=== PATIENT | female | born 1965 | race Caucasian/White ===

== ENCOUNTER 2017-05-10 14:31 | Emergency (ER) | payer SELFPAY ==
[2017-05-10] MEDS ORDERED: KETOROLAC TROMETHAMINE 60 MG/2 ML SDV IM ONE (15:06)
--- NOTE | 2017-05-10 15:12 | ER Document Report ---
ED Neck/Back Problem - General Chief Complaint: Back Pain Stated Complaint: LEFT SIDE BACK PAIN Time Seen by Provider: 05/10/17 14:48 Mode of Arrival: Ambulatory Information source: Patient TRAVEL OUTSIDE OF THE [place] IN LAST 30 DAYS: No - HPI Patient complains to provider of: Pain, Lower back Onset: Other - 4 Where: Home Timing: Constant, Better Quality of pain: Dull Severity: Moderate Pain Level: 4 Associated symptoms: denies: Chest pain, Abdominal pain, Chills, Constipation, Fever, Incontinence, Like prior neck/back pain, Motor loss, Numbness/tingling, Radiation to arm, Radiation to chest, Radiation to leg, Sensory loss, Sweaty, Unable to urinate, Lower back pain, Upper back pain Exacerbated by: Movement of trunk Relieved by: Remaining still Similar symptoms previously: Yes Recently seen / treated by doctor: No Notes: Patient arrives with complaints of left low back pain and left upper eyelid redness and swelling. Patient states that she has a history of intermittent low back problems. She recently moved here and has been sleeping on the floor. Since then she has had low back pain on the left side that radiates down to the left buttock. She denies any trauma or fall. She denies abdominal pain. She denies blood thinners. She denies IV drug use. She denies fevers. She has no bowel or bladder dysfunction, she denies any numbness tingling or weakness to the lower extremities. She denies any abdominal pain, dysuria or hematuria. No chest pain or shortness of breath. Patient states that her pain seems to be getting better. She also complains of redness swelling and tenderness to the left upper eyelid for the last day. Seems to be getting somewhat worse. No injury to the eye. No drainage. No fevers. - Related Data Allergies/Adverse Reactions: No Known Allergies Allergy (Verified 05/10/17 14:35) Past Medical History - Social History Smoking Status: Current Every Day Smoker Frequency of alcohol use: None Drug Abuse: None Family History: Reviewed & Not Pertinent Patient has suicidal ideation: No Patient has homicidal ideation: No Renal/ Medical History: Denies: Hx Peritoneal Dialysis Review of Systems - Review of Systems -: Yes All other systems reviewed and negative Physical Exam - Vital signs Vitals: Temp Pulse Resp BP Pulse Ox 97.9 F 81 20 166/98 H 99 05/10/17 14:35 05/10/17 14:35 05/10/17 14:35 05/10/17 14:35 05/10/17 14:35 - Notes Notes: GENERAL: alert, cooperative, nontoxic, no distress. HEAD: normocephalic, atraumatic EYES: conjunctiva pink without discharge. Small stye to the medial aspect of the left upper eyelid with mild redness and swelling. Mild tenderness. No periorbital redness or swelling. No drainage from the eye. EARS: no external swelling, no external redness NOSE: atraumatic, no external swelling MOUTH/THROAT: mucous membranes moist and pink, posterior pharynx without erythema, swelling, exudate. No trismus or drooling. NECK: soft, supple, full range of motion, no meningismus. CHEST: no distress, lungs clear and equal throughout. No wheezing, rales, rhonchi. CARDIAC: regular rate and rhythm, no murmur, normal capillary refill, normal pulses. No peripheral edema noted. ABDOMEN: soft, nontender, no pusatile mass. BACK: Tenderness to palpation to the left lumbar paraspinal muscles and left SI joint. No redness, no swelling. No rash. EXTREMITIES: full range of motion of all extremities. No redness, no swelling. NEURO: alert and oriented -3, no focal deficits, full range of motion of all extremities. 5 out of 5 flexion and extension of the lower extremities bilaterally. Patellar and Achilles deep tendon reflexes are +2 bilaterally. Normal sensation with no saddle anesthesia. PYSCH: appropriate mood, affect. Patient is cooperative. SKIN: pink, warm, dry, no rash. Course - Re-evaluation Re-evalutation: 05/10/17 15:10 Patient is nontoxic appearing with stable vitals. The patient has a history of low back problems. This is worsened after sleeping on the floor for the last few days. The pain seems to be getting better today. She has taken some meloxicam as well as a muscle relaxer that she has had in the past with minimal improvement. There was no trauma. She has no sign or risk of cauda equina, epidural abscess bleed, discitis, AAA. Patient will be given a dose of Toradol here in the emergency department, discharged home on prednisone and a small supply of Ultram. Follow-up if not improving in the next week, sooner for increased pain, fever, difficulty controlling her bowels or bladder, or any further concerns. She also has a small stye to the left upper eyelid. She was instructed to use baby shampoo to clean the eyelid and apply warm compresses. Follow-up if this is not better in the next 5-7 days. Sooner for increased pain , fever, redness, swelling or any further concerns. The patient is noted to have elevated blood pressure during today's emergency department visit. The patient was informed of this finding. The patient was instructed that this may be related to pre-hypertension and requires further evaluation with a primary care provider. The patient has no hypertensive symptoms at this time. - Vital Signs Vital signs: Temp Pulse Resp BP Pulse Ox 97.9 F 81 20 166/98 H 99 05/10/17 14:35 05/10/17 14:35 05/10/17 14:35 05/10/17 14:35 05/10/17 14:35 Discharge - Discharge Clinical Impression: Lumbar radiculopathy, acute Hordeolum externum left eye, unspecified eyelid Qualifiers: Eyelid: upper Qualified Code(s): H00.014 - Hordeolum externum left upper eyelid Condition: Stable Disposition: HOME, SELF-CARE Instructions: Low Back Pain ([facility]) Additional Instructions: Take medications as prescribed. Clean your upper eyelid with baby shampoo and apply warm compresses. Follow-up if not better in 1 week, sooner for increased pain, fever, difficulty controlling her bowels or bladder, abdominal pain, increased redness or swelling to your eye, or any further concerns. Your blood pressure was elevated during today's visit. Have this rechecked with your doctor. The medication you were prescribed today may cause drowsiness. Do not drive or operate heavy machinery while taking this medication. Prescriptions: Prednisone 60 mg PO DAILY #15 tablet Tramadol HCl [Ultram] 50 mg PO TID PRN #10 tablet PRN Reason: Forms: Elevated Blood Pressure Referrals: [facility] [Provider Group] - Follow up as needed
[2017-05-10 15:52] VITALS: BP 152/91
== END 2017-05-10 15:40 | disposition home or self-care (01) ==
LOC: ER 14:31
DX: M54.16 Radiculopathy, lumbar region (principal); H00.014 Hordeolum externum left upper eyelid; H57.8 Other specified disorders of eye and adnexa; F17.200 Nicotine dependence, unspecified, uncomplicated
CPT/HCPCS: 99283; 96372; J1885

== ENCOUNTER 2019-09-19 15:03 | Emergency (ER) | payer SELFPAY ==
--- NOTE | 2019-09-19 15:59 | ER Document Report ---
ED Medical Screen (RME) - General Chief Complaint: Headache Stated Complaint: HEADACHE/CONGESTION Time Seen by Provider: 09/19/19 15:49 Primary Care Provider: ASHLEE OBREGON MD [Primary Care Provider] - Follow up as needed Notes: Patient is a 54-year-old female who presents to the emergency department with multiple complaints. Patient reports she has a headache, more fatigued than normal, ringing in her ears, heart palpitations and chest pressure. Patient reports she has had intermittent dizziness with generalized weakness. Patient denies fever. Patient reports she does have sinus congestion but that this is chronic for her. Patient reports that she feels like she needs an EKG as she is concerned about her heart. TRAVEL OUTSIDE OF THE [place] IN LAST 30 DAYS: No - Related Data Allergies/Adverse Reactions: No Known Allergies Allergy (Verified 05/10/17 14:35) Past Medical History - Social History Frequency of alcohol use: None Drug Abuse: None Renal/ Medical History: Denies: Hx Peritoneal Dialysis Physical Exam - Vital signs Vitals: Temp Pulse Resp BP Pulse Ox 98.0 F 110 H 18 150/114 H 95 09/19/19 15:08 09/19/19 15:08 09/19/19 15:08 09/19/19 15:08 09/19/19 15:08 Course - Re-evaluation Re-evalutation: 09/19/19 15:58 I have greeted and performed a rapid initial assessment of this patient. A comprehensive ED assessment and evaluation of the patient, analysis of test results and completion of the medical decision making process will be conducted by additional ED providers. - Vital Signs Vital signs: Temp Pulse Resp BP Pulse Ox 98.0 F 110 H 18 150/114 H 95 09/19/19 15:08 09/19/19 15:08 09/19/19 15:08 09/19/19 15:08 09/19/19 15:08 Doctor's Discharge - Discharge Referrals: ASHLEE OBREGON MD [Primary Care Provider] - Follow up as needed
[2019-09-19 16:37] LABS: ABSOLUTE BASOPHILS # (AUTO) 0.1 10^3/uL (0.0-0.2); ABSOLUTE EOSINOPHILS # (AUTO) 0.1 10^3/uL (0.0-0.6); ABSOLUTE LYMPHOCYTES (AUTO) 2.2 10^3/uL (0.5-4.7); ABSOLUTE MONOCYTES (AUTO) 0.6 10^3/uL (0.1-1.4); ABSOLUTE NEUT (AUTO) 5.6 10^3/uL (1.7-8.2); EOSINOPHILS % (AUTO) 0.7 % (0-6); HEMATOCRIT 46.9 % (36.0-47.0); HEMOGLOBIN 16.2 g/dL (12.0-15.5); LYMPHOCYTES % (AUTO) 25.7 % (13-45); MEAN CORPUSCULAR HEMOGLOBIN 32.2 pg (27.0-33.4); MEAN CORPUSCULAR HGB CONC 34.5 g/dL (32.0-36.0); MEAN CORPUSCULAR VOLUME 93 fl (80-97); MONOCYTES % (AUTO) 6.7 % (3-13); PLATELET COUNT 259 10^3/uL (150-450); RED BLOOD COUNT 5.03 10^6/uL (3.72-5.28); RED CELL DISTRIBUTION WIDTH 13.7 % (11.5-14.0); SEGMENTED NEUTROPHILS % (AUTO) 65.9 % (42-78); TOTAL CELLS COUNTED % (AUTO) 100 %; WHITE BLOOD COUNT 8.4 10^3/uL (4.0-10.5)
[2019-09-19 16:53] LABS: ALBUMIN 4.3 g/dL (3.5-5.0); ALCOHOL 143 mg/dL (NONE DETECTED); ALKALINE PHOSPHATASE 74 U/L (38-126); ANION GAP 12 (5-19); ASPARTATE AMINO TRANSFERASE 35 U/L (14-36); BILIRUBIN,DIRECT 0.3 mg/dL (0.0-0.4); BILIRUBIN,TOTAL 0.3 mg/dL (0.2-1.3); BLOOD UREA NITROGEN 10 mg/dL (7-20); CALCIUM 10.1 mg/dL (8.4-10.2); CARBON DIOXIDE 23 mmol/L (22-30); CHLORIDE 105 mmol/L (98-107); GLUCOSE 112 mg/dL (75-110); POTASSIUM 3.8 mmol/L (3.6-5.0); TOTAL PROTEIN 7.3 g/dL (6.3-8.2)
--- NOTE | 2019-09-19 17:07 | RADIOLOGY REPORT (SQ) ---
EXAM DESCRIPTION: CHEST 2 VIEWS COMPLETED DATE/TIME: 09/19/2019 4:57 pm REASON FOR STUDY: chest pressure COMPARISON: None. EXAM PARAMETERS: NUMBER OF VIEWS: two views TECHNIQUE: Digital Frontal and Lateral radiographic views of the chest acquired. RADIATION DOSE: NA LIMITATIONS: none FINDINGS: LUNGS AND PLEURA: Mild pleural based density mid-lower right lateral chest wall. No acut e pulmonary consolidation. No pneumothorax or pleural effusion. MEDIASTINUM AND HILAR STRUCTURES: No masses or contour abnormalities. HEART AND VASCULAR STRUCTURES: Heart normal size. No evidence for failure. BONES: Dextroconvex scoliosis thoracic spine. HARDWARE: None in the chest. OTHER: No other significant finding. IMPRESSION: 1. No acute pulmonary consolidation. 2. Mild pleural based density mid-lower right lateral chest wall. Further evaluation with CT chest with IV contrast suggested. TECHNICAL DOCUMENTATION: JOB ID: [id number] [employer]- All Rights Reserved Reading location - IP/workstation name: [email or web address]
--- NOTE | 2019-09-19 17:21 | ER Document Report ---
ED General - General Chief Complaint: Headache Stated Complaint: HEADACHE/CONGESTION Time Seen by Provider: 09/19/19 15:49 Primary Care Provider: EDITH VALLEJO MD [NO LOCAL MD] - Follow up as needed ROYER ASENCIO MD [ACTIVE STAFF] - Follow up as needed ASHLEE OBREGON MD [Primary Care Provider] - Follow up as needed Notes: CHIEF COMPLAINT: Multiple complaints HPI: 54-year-old female presenting to the emergency department with multiple complaints. Patient states that she normally has ringing in her ears but is been worse over the last 6 days. She also complains of a posterior headache does have history of similar headaches but states it is also been persistent for 6 days and not going away. Denies visual change or loss. Denies nausea or vomiting. Denies balance or gait difficulty. Denies weakness numbness or tingling in the extremities denies slurred speech. She has taken no medications for the headache. Did not call her PCP for evaluation of the headache or the ringing in the ears. Patient states she has also had left-sided chest discomfort that she describes as a heaviness. It is worse when she is laying down at night or first thing in the morning. States it goes away when she is up and exertional. Exertional activities do not make it worse. Eating and drinking did not make it worse. Twisting or turning the torso or pressing on the chest wall does make it worse. No cough fever or recent illness. Patient does admit to drinking alcohol today ROS: See HPI - all other systems were reviewed and are otherwise negative Constitutional: no fever or recent illness Eyes: no drainage, no blurred vision ENT: no runny nose, no sore throat Cardiovascular: + chest wall pain Resp: no SOB, no cough GI: no vomiting, no diarrhea : no dysuria Integumentary: no rash Allergy: no hives Musculoskeletal: no extremity pain or swelling Neurological: no numbness/tingling, no weakness MEDICATIONS: I agree with the patient medications as charted by the RN. ALLERGIES: I agree with the allergies as charted by the RN. PAST MEDICAL HISTORY/PAST SURGICAL HISTORY: Reviewed and agree as charted by RN. SOCIAL HISTORY: Reviewed and agree as charted by RN. FAMILY HISTORY: No significant familial comorbid conditions directly related to patient complaint EXAM: Reviewed vital signs as charted by RN. CONSTITUTIONAL: Alert and oriented and responds appropriately to questions. Well-appearing; well-nourished HEAD: Normocephalic; atraumatic EYES: PERRL; Conjunctivae clear, sclerae non-icteric ENT: normal nose; no rhinorrhea; moist mucous membranes; pharynx without lesions noted NECK: Supple without meningismus; non-tender; no cervical lymphadenopathy, no masses CARD: RRR; no murmurs, no clicks, no rubs, no gallops; symmetric distal pulses RESP: Normal chest excursion without splinting or tachypnea; breath sounds clear and equal bilaterally; no wheezes, no rhonchi, no rales, mild tenderness on palpation of the anterior left chest wall. Pulse oximetry 95% on room air not hypoxic ABD/GI: Normal bowel sounds; non-distended; soft, non-tender, no rebound, no guarding; no palpable organomegaly or masses. BACK: The back appears normal and is non-tender to palpation, there is no CVA tenderness EXT: Normal ROM in all joints; non-tender to palpation; no cyanosis, no effu sions, no edema SKIN: Normal color for age and race; warm; dry; good turgor; no acute lesions noted NEURO: Moves all extremities equally; Motor and sensory function intact. CN II through XII grossly intact. Gait is normal. Strength equal 5/5 bilateral upper and lower extremities. No unilateral neurologic symptoms are noted. PSYCH: The patient's mood and manner are appropriate. Grooming and personal hygiene are appropriate. TRAVEL OUTSIDE OF THE [place] IN LAST 30 DAYS: No - Related Data Allergies/Adverse Reactions: No Known Allergies Allergy (Verified 05/10/17 14:35) Past Medical History - Social History Smoking Status: Current Every Day Smoker Cigarette use (# per day): Yes Chew tobacco use (# tins/day): No Smoking Education Provided: No Frequency of alcohol use: None Drug Abuse: None Family History: Reviewed & Not Pertinent Patient has suicidal ideation: No Patient has homicidal ideation: No Renal/ Medical History: Denies: Hx Peritoneal Dialysis Physical Exam - Vital signs Vitals: Temp Pulse Resp BP Pulse Ox 98.0 F 110 H 18 150/114 H 95 09/19/19 15:08 09/19/19 15:08 09/19/19 15:08 09/19/19 15:08 09/19/19 15:08 Course - Re-evaluation Re-evalutation: 09/19/19 17:20 54-year-old female who does smoke presenting for evaluation of multiple complaints. She has had left chest discomfort constant for 6 days, worse when she is laying flat or when she is awakening in the morning. Exertional activities do not make it worse and it is reproducible to palpation it is less likely to be coronary in nature given the constant nature of her presentation and the reproducibility. Initial screening labs were ordered and do not show acute emergent abnormalities other than an elevated alcohol level of 143 awaiting the troponin currently. Her EKG normal sinus rhythm without significant or pertinent ectopy at this time. Chest x-ray does not show acute findings. She does report ringing in the ears with a posterior headache for 6 days that has been constant in nature she has history of this over the last several years and has been evaluated by her PCP for it previously. Will obtain CT to evaluate for bleed or abnormality although low suspicion given her completely normal neurologic exam. 09/19/19 19:25 CT of the chest does not show any abnormalities. There was an abnormality read on the patient's chest x-ray with a suggestion by the radiologist for CT. No PE. No pneumonia. Patient CT of the head does not show acute abnormalities. She is completely neurologically intact. She is intoxicated. Patient's chest pain is reproducible. Will discharge home to follow-up with cardiology outpatient. Patient has had constant symptoms over the last several days with a normal troponin. Patient does complain of tinnitus but has had this also for 6 days with the headache and has had headaches and tinnitus like this previously. Suspicion for CVA - Vital Signs Vital signs: Temp Pulse Resp BP Pulse Ox 98.0 F 90 18 129/83 H 96 09/19/19 15:08 09/19/19 18:35 09/19/19 18:35 09/19/19 18:35 09/19/19 18:35 - Laboratory Result Diagrams: 09/19/19 16:22 09/19/19 16:22 Laboratory results interpreted by me: 09/19/19 09/19/19 09/19/19 16:22 16:22 18:00 Hgb 16.2 H Glucose 112 H Urine Blood SMALL H Discharge - Discharge Clinical Impression: Bilateral tinnitus, Chest wall pain Headache Qualifiers: Headache type: unspecified Headache chronicity pattern: chronic headache Intractability: not intractable Qualified Code(s): R51 - Headache Disposition: HOME, SELF-CARE Additional Instructions: Your imaging studies did not show acute significant abnormalities. The CT of the head and CT of the chest did not show acute abnormalities. Your lab work did not show acute emergent abnormalities. Your alcohol level was elevated. Follow-up closely with both neurology and cardiology for outpatient evaluation and work-up of your ongoing symptoms. Referrals: ASHLEE OBREGON MD [Primary Care Provider] - Follow up as needed ROYER ASENCIO MD [ACTIVE STAFF] - Follow up as needed EDITH VALLEJO MD [NO LOCAL MD] - Follow up as needed
--- NOTE | 2019-09-19 17:34 | RADIOLOGY REPORT (SQ) ---
EXAM DESCRIPTION: CT HEAD WITHOUT COMPLETED DATE/TIME: 09/19/2019 5:27 pm REASON FOR STUDY: headache COMPARISON: None. TECHNIQUE: Axial images acquired through the brain without intravenous contrast. Images reviewed wi th bone, brain and subdural windows. Additional sagittal and coronal reconstructions were generated. Images stored on PACS. All CT scanners at this facility use dose modulation, iterative reconstruction, and/or weight based d osing when appropriate to reduce radiation dose to as low as reasonably achievable (ALARA). [facility]: Dose Right [facility]: CareDose [facility]: Dose Right [facility]: Teradose 4D [facility]: U.Gene.us RADIATION DOSE: mGy. LIMITATIONS: None. FINDINGS: VENTRICLES: Normal size and contour. CEREBRUM: No masses. No hemorrhage. No midline shift. No evidence for acute infarction. Normal gra y/white matter differentiation. No areas of low density in the white matter. CEREBELLUM: No masses. No hemorrhage. No alteration of density. No evidence for acute infarction. EXTRAAXIAL SPACES: No fluid collections. No masses. ORBITS AND GLOBE: No intra- or extraconal masses. Normal contour of globe without masses. CALVARIUM: No fracture. PARANASAL SINUSES: No fluid or mucosal thickening. SOFT TISSUES: No mass or hematoma. OTHER: No other significant finding. IMPRESSION: NORMAL BRAIN CT WITHOUT CONTRAST. EVIDENCE OF ACUTE STROKE: NO. COMMENT: Quality ID # [id number]: Final reports with documentation of one or more dose reduction techniques (e.g., Automated exposure control, adjustment of the mA and/or kV according to patient size, use of iterative reconstruction technique) TECHNICAL DOCUMENTATION: JOB ID: [id number] [employer]- All Rights Reserved Reading location - IP/workstation name: [email or web address]
[2019-09-19 18:32] LABS: APPEARANCE,URINE CLEAR; BILIRUBIN,URINE NEGATIVE (NEGATIVE); COLOR,URINE COLORLESS; GLUCOSE, URINE NEGATIVE (NEGATIVE); KETONES,URINE NEGATIVE (NEGATIVE); LEUKOCYTE ESTERASE,URINE NEGATIVE (NEGATIVE); NITRITE,URINE NEGATIVE (NEGATIVE); PROTEIN,URINE NEGATIVE (NEGATIVE); URINE SPECIFIC GRAVITY 1.002; UROBILINOGEN,URINE NEGATIVE mg/dL (<2.0)
--- NOTE | 2019-09-19 19:23 | RADIOLOGY REPORT (SQ) ---
EXAM DESCRIPTION: CT CHEST WITH COMPLETED DATE/TIME: 09/19/2019 7:07 pm REASON FOR STUDY: abnormal chest xray RLL COMPARISON: Chest x-ray dated 09/19/2019. TECHNIQUE: CT scan of the chest performed using helical scanning technique with dynamic intravenous contrast injection. Images reviewed with lung, soft tissue and bone windows. Reconstructed coronal and sagittal MPR and MIP images reviewed. All images stored on PACS. All CT scanners at this facility use dose modulation, iterative reconstruction, and/or weight based d osing when appropriate to reduce radiation dose to as low as reasonably achievable (ALARA). [facility]: Dose Right [facility]: CareDose [facility]: Dose Right [facility]: Teradose 4D [facility]: [employer] CONTRAST TYPE AND DOSE: contrast/concentration: Isovue 350.00 mg/ml; Total Contrast Delivered: 80.0 ml; Total Saline Delivered: 55.0 ml RENAL FUNCTION: BUN 10 creatinine 0.65. RADIATION DOSE: CT Rad equipment meets quality standard of care and radiation dose reduction techniq ues were employed. CTDIvol: 14.2 mGy. DLP: 540 mGy-cm. . LIMITATIONS: None. FINDINGS: LUNGS AND PLEURA: No opacities, nodules, masses. No pneumothorax. No effusions. HILAR AND MEDIASTINAL STRUCTURES: No identified masses or abnormal nodes. HEART AND VASCULAR STRUCTURES: No aneurysm or dissection. No central pulmonary emboli. No pericardi al effusion. HARDWARE: None in the chest. UPPER ABDOMEN: No significant findings. Limited exam. THYROID AND OTHER SOFT TISSUES: No masses. No adenopathy. BONES: Old right rib fractures. OTHER: No other significant finding. IMPRESSION: NORMAL CT OF THE CHEST WITH IV CONTRAST. OLD RIGHT RIB FRACTURES. NO PLEURAL OR PARENC HYMAL MASSES. TECHNICAL DOCUMENTATION: JOB ID: [id number] Quality ID # [id number]: Final reports with documentation of one or more dose reduction techniques (e.g., Au tomated exposure control, adjustment of the mA and/or kV according to patient size, use of iterative reconstruction technique) 2010 [employer]- All Rights Reserved Reading location - IP/workstation name: [email or web address]
[2019-09-19 19:43] VITALS: BP 135/84
--- NOTE | 2019-09-19 22:15 | EKG REPORT ---
SEVERITY:- ABNORMAL ECG - SINUS RHYTHM PROBABLE LEFT ATRIAL ABNORMALITY LVH WITH SECONDARY REPOLARIZATION ABNORMALITY : Confirmed by: Maria Victoria Oconnell 19-Sep-2019 22:14:04
== END 2019-09-19 19:44 | disposition home or self-care (01) ==
LOC: ER 15:03
DX: R51 Headache (principal); H93.13 Tinnitus, bilateral; R07.89 Other chest pain; F17.210 Nicotine dependence, cigarettes, uncomplicated
CPT/HCPCS: 36415; 70450; 71046; 71260; 80053; 80307; 81001; 84484; 85025; 93005; 93010; 99285

== ENCOUNTER 2020-09-02 14:54 | Emergency (ER) | payer SELFPAY ==
[2020-09-02 15:02] VITALS: BP 149/96
--- NOTE | 2020-09-02 15:28 | ER Document Report ---
ED Extremity Problem, Lower - General Chief Complaint: Ankle Pain Stated Complaint: TWISTED ANKLE Time Seen by Provider: 09/02/20 15:14 Primary Care Provider: [facility] [Primary Care Provider] - Follow up as needed Mode of Arrival: Wheelchair Information source: Patient Notes: Patient is a 55-year-old female comes emergency room complaining of right ankle pain. Patient states that yesterday she was trying to get out of her car when she lost her balance and rolled her right ankle inward. She states she sat on the ground for a little while attempting to ambulate and had a difficult time putting weight on the foot. She did get herself home and states that it is progressively gotten worse and now it has changed color to a purplish looking tent. She states she is having difficult time putting any weight on it at all. Denies any other injuries at this time. TRAVEL OUTSIDE OF THE [place] IN LAST 30 DAYS: No - HPI Patient complains to provider of: Injury, Pain, Swelling Location: Ankle Occurred: Yesterday Where: Outdoors, Public place Onset/Duration: Sudden Quality of pain: Achy, Sharp, Throbbing Severity: Moderate Pain Level: 3 Context: Wearing shoes Recent injury: Yes Exacerbated by: Movement, Walking Relieved by: Ice - Related Data Allergies/Adverse Reactions: No Known Allergies Allergy (Verified 05/10/17 14:35) Past Medical History - General Information source: Patient - Social History Smoking Status: Current Every Day Smoker Cigarette use (# per day): Yes - Half pack Chew tobacco use (# tins/day): No Smoking Education Provided: Yes Frequency of alcohol use: None Drug Abuse: None Lives with: Family Family History: Reviewed & Not Pertinent Renal/ Medical History: Denies: Hx Peritoneal Dialysis Review of Systems - Review of Systems Constitutional: No symptoms reported EENT: No symptoms reported Cardiovascular: No symptoms reported Respiratory: No symptoms reported Gastrointestinal: No symptoms reported Genitourinary: No symptoms reported Female Genitourinary: No symptoms reported Musculoskeletal: Joint pain, Joint swelling, Ankle swelling Skin: No symptoms reported Hematologic/Lymphatic: No symptoms reported Neurological/Psychological: No symptoms reported -: Yes All other systems reviewed and negative Physical Exam - Vital signs Vitals: Temp Pulse Resp BP Pulse Ox 98.3 F 114 H 20 149/96 H 98 09/02/20 15:01 09/02/20 15:01 09/02/20 15:01 09/02/20 15:01 09/02/20 15:01 Interpretation: Hypertensive, Tachycardic - Notes Notes: PHYSICAL EXAMINATION: GENERAL: Well-appearing, well-nourished and in no acute distress. HEAD: Atraumatic, normocephalic. NECK: Normal range of motion, supple without lymphadenopathy LUNGS: Breath sounds clear to auscultation bilaterally and equal. No wheezes rales or rhonchi. HEART: Tachycardic and rhythm without murmurs Musculoskeletal: Examination patient's her concern is her right ankle. Examination shows patient has some moderate swelling on the lateral malleoli are area extending into the proximal portion of the upper foot. Mild ecchymosis is noted along the heel area right side only. Patient displays good dorsalis pedal pulse and good posterior tibial pulses. Patient does have flexion extension at the ankle but with increased amount of discomfort. No crepitus felt with passive range of motion. Further evaluation shows good cap refill in nailbeds of the toes. There is no palpable pain or tenderness on the dorsum of the foot with exception of the very proximal portion to the lateral malleolus. NEUROLOGICAL: Normal speech, normal gait. Normal sensory, motor exams PSYCH: Normal mood, normal affect. SKIN: Warm, Dry, normal turgor, no rashes or lesions noted. Course - Re-evaluation Re-evalutation: 09/02/20 16:57 Patient's x-rays were negative for any fractures. I discussed with patient possibility of this being an occult fracture may need to be rechecked again in 3 to 4 days and/or it could be internal derangement of the ligaments or tendons. I have not instructed her to be nonweightbearing for 3 days after 3 days take off the splint and attempt to walk if still painful she will need to follow-up with orthopedist. Also instructed her to ice it down 3-4 times a day through the splint. - Vital Signs Vital signs: Temp Pulse Resp BP Pulse Ox 98.3 F 114 H 20 149/96 H 98 09/02/20 15:01 09/02/20 15:01 09/02/20 15:01 09/02/20 15:01 09/02/20 15:01 - Laboratory Results Critical Laboratory Results Reviewed: No Critical Results - Radiology Results Critical Radiology Results Reviewed: No Critical Results Procedures - Immobilization Right Ankle Time completed: 16:58 Pre-Proc Neuro Vasc Exam: Normal Immobilizer type: Ankle stirrup Performed by: PCT Post-Proc Neuro Vasc Exam: Normal Alignment checked and good: Yes Discharge - Discharge Clinical Impression: Right ankle sprain Qualifiers: Encounter type: initial encounter Involved ligament of ankle: unspecified ligament Qualified Code(s): S93.401A - Sprain of unspecified ligament of right ankle, initial encounter Condition: Stable Disposition: HOME, SELF-CARE Instructions: Ice Packs (OM), Splint Precautions (OM), Sprained Ankle (OM) Additional Instructions: Home and rest. As we discussed nonweightbearing for 3 days as much as possible. Ice down through the splint 2-3 times a day by applying a garbage bag over top and then ice packs on top and bottom. After 3 days you can attempt to remove the splint attempt ambulation if you are still exceptionally painful you will need to follow-up with orthopedist. If you do not have an orthopedic doctor and give you the one that is on-call for us today. You can contact that office to see if we can accommodate you. Should you have any other's concerns or problems you can return to ER for reevaluation. Forms: Elevated Blood Pressure, Smoking Cessation Education Referrals: [facility] [Primary Care Provider] - Follow up as needed EARL BECKWITH MD [ACTIVE STAFF] - Follow up as needed
--- NOTE | 2020-09-02 15:44 | RADIOLOGY REPORT (SQ) ---
EXAM DESCRIPTION: ANKLE RIGHT COMPLETE IMAGES COMPLETED DATE/TIME: 09/02/2020 12:31 pm REASON FOR STUDY: ankle pain COMPARISON: None. NUMBER OF VIEWS: Three views. TECHNIQUE: AP, lateral, and oblique radiographic images acquired of the right ankle. LIMITATIONS: None. FINDINGS: MINERALIZATION: Normal. BONES: No acute fracture or dislocation. No worrisome bone lesions. JOINTS: No dislocation. Joint spaces are intact. SOFT TISSUES: Lateral soft tissue swelling. OTHER: Plantar and posterior calcaneal spurs. IMPRESSION: Lateral soft tissue swelling without acute fracture identified. TECHNICAL DOCUMENTATION: JOB ID: [id number] [employer]- All Rights Reserved Reading location - IP/workstation name: [email or web address]
== END 2020-09-02 17:11 | disposition home or self-care (01) ==
LOC: ER 14:54
PROC: 2W3QX1Z Immobilization of Right Lower Leg using Splint (ICD-10-PCS; principal; 2020-09-02)
DX: M25.571 Pain in right ankle and joints of right foot (principal); M79.89 Other specified soft tissue disorders; W50.2XXA Accidental twist by another person, initial encounter; F17.210 Nicotine dependence, cigarettes, uncomplicated
CPT/HCPCS: 99283